=== PATIENT | female | born 1960 | race Caucasian/White ===

== ENCOUNTER 2018-12-05 13:14 | Emergency (ER) | payer MEDICARE, MEDICAID ==
[2018-12-05] MEDS ORDERED: Azithromycin 250 MG TAB ONE (13:42)
[2018-12-05] MEDS ORDERED: Benzonatate 100 MG CAP ONE (13:42)
[2018-12-05] MEDS ORDERED: predniSONE 20 MG TAB ONE (13:42)
--- NOTE | 2018-12-05 16:56 | RAD ---
CHEST TWO VIEWS: 12/05/18 Comparison is made with a 09/25/[address] [facility]. There is no lobar infiltrate or effusion. There is diffuse interstitial prominence throughout the christiano gs which is not new. This is presumably fibrosis. The upper lobes are clear. The mediastinum shows no abnormality. The trachea is midline. IMPRESSION: 1. No acute thoracic findings. 2. Prominence of basilar markings that appears to be longstanding. POS: HOME
== END 2018-12-05 13:48 | disposition home or self-care (01) ==
LOC: BURERS 13:14
DX: J44.1 Chronic obstructive pulmonary disease with (acute) exacerbation (principal); F32.9 Major depressive disorder, single episode, unspecified; F17.210 Nicotine dependence, cigarettes, uncomplicated; E78.00 Pure hypercholesterolemia, unspecified; Z86.718 Personal history of other venous thrombosis and embolism; Z79.891 Long term (current) use of opiate analgesic; Z79.899 Other long term (current) drug therapy
CPT/HCPCS: 71046; J7512